=== PATIENT | female | born 1990 | race Caucasian/White ===

== ENCOUNTER 2016-10-13 13:54 | Emergency (ER) | payer BC, OTHER ==
[~2016-10-13] VITALS: Ht 175.3 cm; Wt 93.0 kg
[2016-10-13] MEDS ORDERED: IBUPROFEN 200200 M1 PO (14:06)
[2016-10-13 14:27] LABS: URINE BILIRUBIN NEGATIVE (Negative); URINE BLOOD NEGATIVE (Negative); URINE COLOR YELLOW; URINE GLUCOSE-RANDOM* NEGATIVE (Negative); URINE KETONES NEGATIVE (Negative); URINE NITRITE NEGATIVE (Negative); URINE PROTEIN (DIPSTICK) NEGATIVE (Negative); URINE UROBILINOGEN 0.2 E.U./dl (0.2-1.0)
[2016-10-13 14:37] LABS: BACTERIA 1-9 Few /HPF (None Seen); CASTS None Seen /LPF (None Seen); CRYSTALS None Seen /LPF (None Seen); SQUAMOUS 0-3 Few /LPF (0-3); URINE RBC None Seen /HPF (0-2); URINE WBC 0-5 Rare /HPF (0-5)
[2016-10-13] MEDS ORDERED: TIZANIDINE HCL4 MG PO (16:10)
[2016-10-13] MEDS ORDERED: IBUPROFEN 600600 M1 PO (16:10)
[2016-10-13 16:35] VITALS: BP 142/68
== END 2016-10-13 16:37 | disposition home or self-care (01) ==
LOC: ER 13:54
PROVIDERS: Nurse Practitioner
DX: S39.012A Strain of muscle, fascia and tendon of lower back, initial encounter (principal); Z88.5 Allergy status to narcotic agent; X50.1XXA Overexertion from prolonged static or awkward postures, initial encounter; Y93.89 Activity, other specified; Y92.89 Other specified places as the place of occurrence of the external cause; Y99.8 Other external cause status